=== PATIENT | female | born 2005 | race Caucasian/White ===

== ENCOUNTER 2023-01-11 11:48 | Emergency (ER) | payer BC, SELFPAY ==
[2023-01-11 11:50] VITALS: BP 119/94; PULSE 86; RESP 15; TEMP 36.2; O2SAT 99; BMI 21.9
--- NOTE | 2023-01-11 12:48 | EDS_ITS ---
HPI History of Present Illness Chief Complaint: Bite Informant: patient Narrative Narrative: Patient presents for [facility] secondary to possible bat bite. She is in an older dorm this year. She has not seen any bats recently but in the shower today she noted a few small red christianson on her right forearm. She went to the [facility] and due to concern for possible bat bite she was sent to the emergency room. [facility] Medical History ADHD Anxiety Depression Allergy/AdvReac Type Severity Reaction Status Date / Time No Known Allergies Allergy Verified 01/11/23 12:43 Social History Smoking Status: Never smoker ROS ROS ED Constitutional Constitutional ED: Denies chills or fever(s) ENT ENT ED: Denies sore throat Cardiovascular Cardiovascular: Denies chest pain Respiratory/Chest Respiratory/Chest: Denies cough or dyspnea Gastrointestinal Gastrointestinal: Denies abdominal pain, nausea or vomiting Musculoskeletal Musculoskeletal: Denies back pain or extremity pain Integumentary Reports rash; Denies Abrasions Neurologic Neurologic: Denies headache(s) or weakness Psychiatric Psychiatric: Denies anxiety or depression Allergic/Immunologic Allergic/Immunologic ED: Denies lip swelling or urticaria EXAM Physical Exam Const Vital Signs: 01/11/23 11:50 Temperature 97.1 F L Temperature Source Temporal Pulse Rate 86 Respiratory Rate 15 Blood Pressure 119/94 H Blood Pressure Mean 102 Pulse Ox 99 Oxygen Delivery Method Room Air Positive well nourished and well developed General Appearance ED: well developed HEENT Reports moist mucous membranes Eyes EOMs intact bilaterally Chest Wall inspection of chest normal and palpation of chest normal Resp normal respiratory effort and clear to auscultation bilaterally Cardio regular rate and regular rhythm Extremity Extremity Narrative: Patient has a few very faint pink christianson on the volar aspect of her right forearm. The area is not tender. There is no edema. There is no bleeding. Neuro oriented x3 and no sensory deficits noted Motor Exam: strength 5/5 throughout MDM MDM MDM Narrative Medical decision making narrative: I advised the patient that there is no way to guarantee that this is not marked from a bat bite, although my suspicion is very low. After discussion of pros and cons she does wish to proceed with rabies vaccination. Immunoglobulin as well as initial dose of vaccine will be given at this time. Discharge Plan Triage Chief Complaint: Bite ED Provider: Fariba Hobbs Dx/Rx/DC Orders Clinical Impression: Bat bite wound Instructions: Understanding Rabies Primary Care Provider: Care Physician,No Primary Referrals: [facility] [Group of Physicians] - As Needed Care Physician,No Primary [Primary Care Provider] - Activity Restrictions/Additional Instructions: As discussed, you will need to return to the emergency room on day 3, day 7, and day 14 for further injections. Disposition Disposition: Home, Self Care
[2023-01-11] MEDS: Rabies Vaccine,Human Diploid 2.5 UNITS Vial IM (13:00)
[2023-01-11] MEDS: Rabies Immune Globulin 150 U/ML 2ml Vial 1090 U IM (13:01)
[2023-01-11 14:30] VITALS: BP 103/79; PULSE 104
== END 2023-01-11 14:31 | disposition home or self-care (01) ==
PROVIDERS: Emergency Provider Emergency Medicine; Visit Provider Emergency Medicine
DX: S51.801A Unspecified open wound of right forearm, initial encounter (principal); W55.81XA Bitten by other mammals, initial encounter
CPT/HCPCS: 90675; 96372; 99283; 90375

== ENCOUNTER 2023-01-14 13:04 | Emergency (ER) | payer BC, SELFPAY ==
[2023-01-14 13:16] VITALS: BP 111/76; PULSE 102; O2SAT 99
[2023-01-14] MEDS: Rabies Vaccine,Human Diploid 2.5 UNITS Vial IM (13:32)
== END 2023-01-14 13:41 | disposition home or self-care (01) ==
PROVIDERS: Emergency Provider Emergency Medicine
DX: Z23 Encounter for immunization (principal)
CPT/HCPCS: 90675; 96372

== ENCOUNTER 2023-01-18 16:00 | Outpatient (CLI) | payer BC, SELFPAY ==
[2023-01-18 16:15] VITALS: BP 129/82; PULSE 99; RESP 17; TEMP 36.4; O2SAT 98; BMI 24.6
[2023-01-18] MEDS: Rabies Vaccine,Human Diploid 2.5 UNITS Vial IM (17:16)
== END 2023-01-18 18:09 | disposition home or self-care (01) ==
LOC: ED 18:08
DX: Z23 Encounter for immunization (principal)
CPT/HCPCS: 90675; 96372

== ENCOUNTER → 2023-01-25 | Outpatient (CLI) | payer BC, SELFPAY ==
[2023-01-25 18:39] VITALS: BP 123/96; PULSE 98; RESP 18; TEMP 36.3; O2SAT 98; BMI 24.3
[2023-01-25 18:40] VITALS: BP 123/96; PULSE 105; RESP 16; TEMP 36.3; O2SAT 98; BMI 24.3
[2023-01-25] MEDS: Rabies Vaccine,Human Diploid 2.5 UNITS Vial IM (18:54)
== END | disposition home or self-care (01) ==
LOC: ED 19:25
DX: Z23 Encounter for immunization (principal)
CPT/HCPCS: 90675; 96372

== ENCOUNTER 2023-04-01 16:55 | Emergency (ER) | payer BC, SELFPAY ==
[2023-04-01 16:56] VITALS: BP 112/77; PULSE 83; RESP 16; TEMP 36.9; O2SAT 99; BMI 22.6
--- NOTE | 2023-04-01 17:16 | EDS_ITS ---
HPI History of Present Illness Chief Complaint: General Illness Informant: patient Narrative Narrative: For about the past week, patient has been having what she calls tics. They have been very frequent. She has had these as a child, but fairly infrequently, sim fabianar to this. She has lipsmacking at times, she has turned over the arm of a chair while she was sitting suddenly, most of them or not that dramatic though. Most of them have been simply shrugging of her shoulders, turning her head to the side, and sometimes making noises or movements with her mouth and lips. At times they have involved her legs, but nothing that has kept her from maintaining posterior or given her trouble walking. No loss consciousness. Nothing rhythmic. Patient is on medications for anxiety, depression, ADHD. She states her medications been stable but she ran out of her Adderall 1 week ago, she agrees that the timing of this coincides with the timing of her tics being worse. She has never seen a neurologist or actually seen a doctor for the tics, she states her parents are aware that she does them at times, but she has never had it as frequently as she does right now. She states she emailed her doctor in [place] where she is from, she attends college here, and just has not gotten a refill yet. Denies any recent illness. Denies head injury. Denies any focal neurologic symptoms such as vision changes, numbness, tingling, weakness, trouble speaking or understanding others. [facility] Medical History (Updated 04/01/23 @ 17:[address] Jack Garcia MD) ADHD Anxiety Depression Home Medications dextroamphetamine-amphetamine 10 mg tablet (Adderall) 10 mg PO DAILY 14 days #14 tabs 04/01/23 [Rx Last Taken Unknown] mirtazapine 7.5 mg tablet 7.5 mg PO QHS 04/01/23 [History Last Taken Unknown] Allergy/AdvReac Type Severity Reaction Status Date / Time No Known Allergies Allergy Verified 04/01/23 16:56 Social History Smoking Status: Never smoker ROS ROS ED Constitutional Constitutional ED: Denies chills or fever(s) Eyes Eyes: Denies change in vision or diplopia ENT ENT ED: Denies rhinorrhea or sore throat Cardiovascular Cardiovascular: Denies chest pain or palpitations Respiratory/Chest Respiratory/Chest: Denies cough or dyspnea Gastrointestinal Gastrointestinal: Denies abdominal pain, diarrhea, nausea or vomiting Genitourinary Genitourinary ED: Denies dysuria or hematuria Musculoskeletal Musculoskeletal: Denies back pain or neck pain Integumentary Denies abscess or rash Neurologic Neurologic: Reports as per HPI; Denies headache(s), paresthesias or weakness Psychiatric Psychiatric: Denies anxiety or suicidal thoughts EXAM Physical Exam Const Vital Signs: 04/01/23 16:56 Temperature 98.4 F Temperature Source Temporal Pulse Rate 83 Respiratory Rate 16 Blood Pressure 112/77 Blood Pressure Mean 88 Pulse Ox 99 Oxygen Delivery Method Room Air Positive well nourished and well developed General Appearance ED: well developed and NAD HEENT Reports moist mucous membranes normocephalic and atraumatic Eyes PERRL and EOMs intact bilaterally Neck full ROM and supple Resp normal respiratory effort and clear to auscultation bilaterally Cardio regular rate, regular rhythm and no murmurs GI non-tender and non-distended Auscultation: normoactive bowel sounds Palpation: soft Back/Spine no CVA tenderness General Back: other FROM Extremity normal to inspection General Extremety ED: Negative for edema, pulses abnormal or tenderness General Extremity: Negative for edema or pulses abnormal Neuro oriented x3, CN's II-XII intact bilaterally and no sensory deficits noted Neuro Narrative: Frequent tics. No seizure activity. There are times when the patient is asymptomatic. These include lipsmacking, making noises with her mouth, shoulder and neck movements, rarely a leg or an arm. Able to stand without any d ifficulty as well as walk. Sensorium / Orientation: awake and alert Motor Exam: strength 5/5 throughout Psych mental status grossly normal Skin no rashes or lesions noted and no wounds MDM MDM MDM Narrative Medical decision making narrative: We will check labs to rule out anemia and like disorder that could cause tetany or muscle spasms. Given the timing of her medication that ran out, my first instinct is that this is related to withdrawing from her Adderall. However, the tics are a side effect of Adderall. I think this is less likely a dystonic reaction related to her Lexapro/mirtazapine. If she had tics in the past, it is possible that she has a tic disorder. At this time I am going to give her a short refill prescription of the Adderall 10 mg that she takes, with instructions that if the tics become worse on the medication that she should stop it and return to the ER or follow-up with neurology or her doctor in [place] virtually if able. Labs reviewed all normal, plan as above. At discharge, offered the patient a dose of oral Ativan which she was amenable to and asked me to discuss with her mom as well which we all did together on cell phone. Mom is comfortable with this overall plan, she understands this is mostly clinical diagnosis and tough to manage acutely, the Ativan may help tonight, in her case I think it is probably withdrawal from the Adderall which she has been on for years without major issues but the patient still confirms to mom, which was unknown prior to her telling her to this, that she has been having tics like this many times in the past which is why I think this is not a dystonic reaction. We did also consider prescriptions for clonidine and other neuroleptics, but I do not think that is necessarily appropriate right now until she goes back on her Adderall to see if it suppresses the symptoms. If it does not, and makes it worse, I recommend discontinuing it and following up or returning. Lab Data Attestation: I reviewed the patient's lab results. Labs: Laboratory Results - last 24 hr 04/01/23 17:42 WBC 7.6 RBC 4.52 Hgb 13.5 Hct 41.8 MCV 92.5 MCH 29.9 MCHC 32.3 RDW Std Deviation 43.4 RDW Coeff of Suri 12.8 Plt Count 325 MPV 9.9 Immature Gran % (Auto) 0.400 Neut % (Auto) 54.0 Lymph % (Auto) 35.2 [place] % (Auto) 7.9 Eos % (Auto) 1.7 Baso % (Auto) 0.8 Absolute Neuts (auto) 4.1 Absolute Lymphs (auto) 2.68 Nucleated RBC % 0 Sodium 141 Potassium 3.9 Chloride 109 H Carbon Dioxide 26.0 Anion Gap 6 BUN 9 Creatinine 0.73 Estim Creat Clear Calc 98.04 Est GFR (MDRD) Af Amer 132 Est GFR (MDRD) Non-Af 109 BUN/Creatinine Ratio 12.4 Glucose 101 Calcium 9.1 Discharge Plan Triage Chief Complaint: General Illness ED Provider: Jack Garcia Dx/Rx/DC Orders Clinical Impression: Medication refill, Tic douloureux Instructions: Adderall Oral Tablet 10 mg, Tourette Syndrome Ch Prescriptions: New dextroamphetamine-amphetamine [Adderall] 10 mg tablet 10 mg PO DAILY 14 Days Qty: 14 0RF No Action mirtazapine 7.5 mg tablet 7.5 mg PO QHS Primary Care Provider: Care Physician,No Primary Referrals: Paco Arango MD [Non-Staff -Ordering Privileges] - Care Physician,No Primary [Primary Care Provider] - Disposition Disposition: Home, Self Care
[2023-04-01 17:51] LABS: Absolute Lymphocyte Count 2.68 X10^3/uL (0.83-4.51); Absolute Neutrophil Count 4.1 X10^3/uL (2.0-7.7); Basophil# 0.06 X10^3/uL; Basophil% 0.8 % (0-1); Eosinophil# 0.13 X10^3/uL; Eosinophils% 1.7 % (0-5); Hematocrit 41.8 % (37-47); Hemoglobin 13.5 g/dL (12.0-15.0); Lymphocyte # 2.68 X10^3/ul (0.83-4.51); Lymphocyte % 35.2 % (19-41); Mean Corp Hgb Conc 32.3 g/dL (32-36); Mean Corpuscular Hgb 29.9 pg (27.0-32.0); Mean Corpuscular Volume 92.5 fL (81-99); Mean Platelet Vol. 9.9 fl (6.2-12.0); Monocyte% 7.9 % (0-10); NRBC Flagged by Analyzer 0 % (0-5); Neutrophil # 4.11 X10^3/uL (2.7-7.7); Platelet Count 325 K/mm3 (150-450); RBC Distribution Width CV 12.8 % (11.6-14.6); RBC Distribution Width SD 43.4 fl (35.1-43.9); Red Blood Count 4.52 M/mm3 (4.2-5.4); White Blood Count 7.6 K/mm3 (4.4-11.0)
[2023-04-01 18:08] LABS: Anion Gap 6 (5-15); BUN 9 mg/dL (7-18); BUN/Creat Ratio 12.4 RATIO (10-20); Calcium,Total 9.1 mg/dL (8.5-10.1); Chloride 109 mmol/L (98-107); Creatinine, Serum 0.73 mg/dL (0.55-1.02); EST Glomerular Filtration Rate 109 mL/min (>60); Est Glom Filt Rate - Afr Amer 132 mL/min (>60); Estimated Creatinine Clearance 98.04 ml/min; Glucose 101 mg/dL (74-106); Potassium 3.9 mmol/L (3.5-5.1); Sodium Level 141 mmol/L (136-145)
[2023-04-01] MEDS: LORazepam 1 MG Tablet PO (18:52)
== END 2023-04-01 18:54 | disposition home or self-care (01) ==
PROVIDERS: Emergency Provider Emergency Medicine; Visit Provider Emergency Medicine
DX: G50.0 Trigeminal neuralgia (principal); Z76.0 Encounter for issue of repeat prescription; F41.9 Anxiety disorder, unspecified; F90.9 Attention-deficit hyperactivity disorder, unspecified type; F32.A Depression, unspecified; Z79.899 Other long term (current) drug therapy
CPT/HCPCS: 80048; 85025; 99283

== ENCOUNTER 2023-04-15 20:05 | Emergency (ER) | payer BC, SELFPAY ==
[2023-04-15 20:07] VITALS: BP 118/90; PULSE 110; RESP 18; TEMP 36.8; O2SAT 98; BMI 23.5
--- NOTE | 2023-04-15 20:23 | CT_ITS ---
INDICATION: head injury EXAMINATION: CT BRAIN - CT Head or Brain W/O Contrast Injection TECHNIQUE: Serial CT axial images were obtained of the head without intravenous contrast. A radiation dose optimization technique was used for this scan. COMPARISON: None. Findings: Serial CT axial images of the head without contrast. BRAIN PARENCHYMA: Normal alegria-white matter differentiation. No evidence of intraparenchymal hemorrhage or hyperattenuating extra-axial fluid collection. BONES: Right maxillary sinus retention cyst. SCALP/REMAINING SOFT TISSUES: Unremarkable. ASPECTS Score for Acute Strokes, if applicable: 10 CT/Brain/Head without Contrast IMPRESSION: No acute intracranial hemorrhage in this noncontrast head CT. Sinus disease. Electronically Signed: Chris Hoang MD at 21:22 EST ,
--- NOTE | 2023-04-15 20:25 | EX.ED.DYSGE1 ---
HPI <KARIN Melara - Last Filed: 04/15/23 20:59> History of Present Illness Chief Complaint: Head Injury Narrative Narrative: Patient is a 17-year-old female with history of anxiety, depression, ADHD presents to the emergency department for worsening tics. Patient states that she was seen here on 04/01/2023 for the same. Patient states that these tics which she used to have as a child however never this dramatic started again on 03/29/2023. Patient at that time thought it was secondary to not taking her Adderall. Patient states over the last several weeks, the tics have been getting worse, they are mostly in her upper and lower body, she also states that sometimes when she is on the floor her legs will get involved as well. She is here with her significant other. Patient also states that last evening she became very dizzy and had a vertiginous-like episode and had some vision changes. She denies any nausea or vomiting. Patient states that she does see a nurse practitioner that is also specialized in psych who she follows up with however she was unable to get a hold of her this weekend. Secondary to the worsening tics, the patient is here for evaluation. PFSH <KARIN Melara - Last Filed: 04/15/23 20:59> [facility] Medical History (Updated 04/15/23 @ 22:00 by Farooq Kruse MD) ADHD Anxiety Depression OCD (obsessive compulsive disorder) Home Medications dextroamphetamine-amphetamine 10 mg tablet (Adderall) 10 mg PO DAILY 14 days #14 tabs 04/01/23 [Rx Last Taken Unknown] mirtazapine 7.5 mg tablet 7.5 mg PO QHS 04/01/23 [History Last Taken Unknown] hydroxyzine pamoate 25 mg capsule (Vistaril) 25 mg PO BID PRN anxiety #14 caps 04/15/23 [Rx Last Taken Unknown] Allergy/AdvReac Type Severity Reaction Status Date / Time No Known Allergies Allergy Verified 04/15/23 20:10 Social History Smoking Status: Never smoker ROS <KARIN Melara - Last Filed: 04/15/23 20:59> ROS ED ROS Narrative Constitutional: Negative for fever, chills, weight loss, weakness Eyes: Negative for vision loss, double vision. Positive for vision change ENT: Negative for any sore throat, ear pain, congestion Cardiovascular: Negative for any chest pain, tightness, palpitations Respiratory: Negative for any cough, sputum production, hemoptysis, dyspnea, dyspnea on exertion, orthopnea Gastrointestinal: Negative for any abdominal pain, nausea, vomiting, diarrhea, constipation, blood in stool, blood in vomit : Negative for any urinary frequency, dysuria, retention, blood in urine Muscle skeletal: Negative for any myalgias, arthralgias, neck pain, back pain Neurological: Negative for any headache, syncope, numbness or tingling, dizziness. Positive for tics, movements of the face and upper extremities. Skin: Negative for any rashes, lumps, itching, abrasions, lacerations Psychiatric: Negative for any depression, anxiety, stress, suicidal ideation, homicidal ideation Hematologic: Negative for any easy bruising, excessive bruising, easy bleeding Allergies: Negative for any eczema, hives, rash EXAM <KARIN Melara - Last Filed: 04/15/23 20:59> Physical Exam Narrative Exam Narrative: Vital signs reviewed. Patient had multiple taking episodes while I was in the room talking with the patient. They range from anywhere of movements with her jaw to her face to her neck to moving her shoulders. HEET: Head normocephalic atraumatic, TMs clear bilaterally. Posterior pharynx is clear, moist mucous membranes. Nares clear bilaterally. Pupils are equal round reactive to light. Negative for any nystagmus. Neck: Supple with no lymphadenopathy or tenderness. No signs of meningismus. Cardiac: Regular rate and rhythm no murmurs gallops or rubs, equal peripheral pulses bilaterally. Respiratory: Lungs clear to auscultation bilaterally. No chest tenderness. Abdomen: Soft, nontender, nondistended. No abdominal bruit or pulsatile masses. No hepatosplenomegaly Extremities: No peripheral edema, no signs of gross trauma or deformity. Active full range of motion of all extremities. Neuro: Cranial nerves II through XII intact, no focal neurological deficits. Patient does have these tics however they are constant, Skin: Clean dry and intact with no rash, purpura, petechiae, vesicles or pustules. Backs/flank: No CVA tenderness, no midline spinal tenderness, no deformity. Psych: Normal mood and affect. No SI, HI or acute psychosis. Const Vital Signs: 04/15/23 20:07 04/15/23 21:30 Temperature 98.3 F Temperature Source Temporal Pulse Rate 110 H Respiratory Rate 18 Respiratory Effort Normal Non-Labored Respiratory Depth Normal Respiratory Pattern Normal Blood Pressure 118/90 H Blood Pressure Mean 99 Pulse Ox 98 Oxygen Delivery Method Room Air Room Air Positive well nourished and well developed General Appearance ED: well developed <Farooq Kruse MD - Last Filed: 04/15/23 22:03> Physical Exam Const Vital Signs: 04/15/23 20:07 04/15/23 21:30 Temperature 98.3 F Temperature Source Temporal Pulse Rate 110 H Respiratory Rate 18 Respiratory Effort Normal Non-Labored Respiratory Depth Normal Respiratory Pattern Normal Blood Pressure 118/90 H Blood Pressure Mean 99 Pulse Ox 98 Oxygen Delivery Method Room Air Room Air MDM <KARIN Melara - Last Filed: 04/15/23 20:59> MDM Lab Data Labs: Laboratory Results - last 24 hr 04/15/23 04/15/23 20:35 21:07 WBC 8.8 RBC 4.31 Hgb 13.1 Hct 39.2 MCV 91.0 MCH 30.4 MCHC 33.4 RDW Std Deviation 41.2 RDW Coeff of Suri 12.4 Plt Count 285 MPV 9.9 Immature Gran % (Auto) 0.300 Neut % (Auto) 61.2 Lymph % (Auto) 28.1 [place] % (Auto) 9.2 Eos % (Auto) 0.5 Baso % (Auto) 0.7 Absolute Neuts (auto) 5.4 Absolute Lymphs (auto) 2.48 Nucleated RBC % 0 Sodium 139 Potassium 3.6 Chloride 108 H Carbon Dioxide 24.0 Anion Gap 7 BUN 10 Creatinine 0.79 Estim Creat Clear Calc 90.59 Est GFR (MDRD) Af Amer 119 Est GFR (MDRD) Non-Af 99 BUN/Creatinine Ratio 12.6 Glucose 91 Calcium 9.3 TSH 1.28 Urine Color Yellow Urine Clarity Cloudy Urine pH 5.0 Ur Specific [place] 1.025 Urine Protein 30 H Urine Glucose (UA) Normal Urine Ketones 50 H Urine Occult Blood 25 H Urine Nitrite Negative Urine Bilirubin Negative Urine Urobilinogen Normal Ur Leukocyte Esterase 500 H Urine RBC 0-5 SEEN Urine WBC 50-100 SEEN Ur Squamous Epith Cells 25-50 SEEN Urine Bacteria 2+ Urine Mucus 0 SEEN Urine Test Negative Radiography Diagnostic Testing: Clinical Impression(s) from Imaging Studies Brain CT 04/15/23 20:23 IMPRESSION: No acute intracranial hemorrhage in this noncontrast head CT. Sinus disease. Electronically Signed: Chris Hoang MD at 21:22 EST , Treatment and Re-Evaluation :: Patient appears to be in no obvious distress, patient's vital signs are stable, patient appears nontoxic. Presenting to the emergency department for tics that have been getting worse since 29 March 2023. The patient is concerned she might have hypothyroidism, she would like that checked. Patient's differential diagnosis includes mental illness, electrolyte imbalance, intracranial normality, anemia, attention seeking behavior. Patient does produce more tics when her boyfriend is around her. Patient received some basic laboratory values, electrolytes, TSH. She will receive a CT scan of the brain concerning for dizziness. Patient was given meclizine for dizziness. <Farooq Kruse MD - Last Filed: 04/15/23 22:03> [facility] Narrative Medical decision making narrative: Dr. Kruse: I have personally performed a face to face assessment of the patient and have reviewed the MARK Note. I performed a substantive portion of the visit including all aspects of the following. My ramirez findings include: History is muscle twitching, possibly stress-induced. It self and head with twitching. Exam is afebrile. Vital signs noted. GCS 15. ABCs intact. Regular rate and rhythm. Lungs clear to auscultation bilaterally. Abdomen soft and nontender. Involuntary body jerking and muscle twitching during examination. Medical Decision Making: Patient seen in conjunction with nurse practitioner. Check CT of brain. CT radiology report reviewed and shows no evidence of acute intracranial hemorrhage or mass. I reviewed her laboratory work and she has normal TSH, her CBC and CMP are also normal. Urine is negative, urinalysis is a contaminated specimen I do not feel antibiotics are indicated. Discussed with patient and mother over the phone, her results. I do feel that she needs follow-up with her psychiatrist. She was also referred to neurology and a primary care provider. I do not feel she requires admission. She will take Vistaril up to twice a day as needed as she relays problems with stress and anxiety which is causing increasing muscle twitching. Disposition is discharged in stable condition. Other additions or changes: [None] History & Record Review Discussion w/independent historian: Patient and Family (Mother via telephone.) Lab Data Attestation: I reviewed the patient's lab results. Labs: Laboratory Results - last 24 hr 04/15/23 04/15/23 20:35 21:07 WBC 8.8 RBC 4.31 Hgb 13.1 Hct 39.2 MCV 91.0 MCH 30.4 MCHC 33.4 RDW Std Deviation 41.2 RDW Coeff of Suri 12.4 Plt Count 285 MPV 9.9 Immature Gran % (Auto) 0.300 Neut % (Auto) 61.2 Lymph % (Auto) 28.1 [place] % (Auto) 9.2 Eos % (Auto) 0.5 Baso % (Auto) 0.7 Absolute Neuts (auto) 5.4 Absolute Lymphs (auto) 2.48 Nucleated RBC % 0 Sodium 139 Potassium 3.6 Chloride 108 H Carbon Dioxide 24.0 Anion Gap 7 BUN 10 Creatinine 0.79 Estim Creat Clear Calc 90.59 Est GFR (MDRD) Af Amer 119 Est GFR (MDRD) Non-Af 99 BUN/Creatinine Ratio 12.6 Glucose 91 Calcium 9.3 TSH 1.28 Urine Color Yellow Urine Clarity Cloudy Urine pH 5.0 Ur Specific [place] 1.025 Urine Protein 30 H Urine Glucose (UA) Normal Urine Ketones 50 H Urine Occult Blood 25 H Urine Nitrite Negative Urine Bilirubin Negative Urine Urobilinogen Normal Ur Leukocyte Esterase 500 H Urine RBC 0-5 SEEN Urine WBC 50-100 SEEN Ur Squamous Epith Cells 25-50 SEEN Urine Bacteria 2+ Urine Mucus 0 SEEN Urine Test Negative Radiography Diagnostic Testing: Clinical Impression(s) from Imaging Studies Brain CT 04/15/23 20:23 IMPRESSION: No acute intracranial hemorrhage in this noncontrast head CT. Sinus disease. Electronically Signed: Chris Hoang MD at 21:22 EST , Discharge Plan Triage Chief Complaint: Head Injury ED Midlevel Provider: Navin Rich ED Provider: Farooq Kruse Dx/Rx/DC Orders Clinical Impression: Stress, Twitching, Anxiety Instructions: Identifying Causes of Stress, ED Muscle Spasm Prescriptions: New hydroxyzine pamoate [Vistaril] 25 mg capsule 25 mg PO BID PRN (Reason: anxiety) Qty: 14 0RF No Action mirtazapine 7.5 mg tablet 7.5 mg PO QHS dextroamphetamine-amphetamine [Adderall] 10 mg tablet 10 mg PO DAILY 14 Days Qty: 14 0RF Primary Care Provider: Care Physician,No Primary Referrals: Rachelle Mena MD [Med Staff - Full Decator Operator] - As soon as possible Paco Arango MD [Non-Staff -Ordering Privileges] - As soon as possible Care Physician,No Primary [Primary Care Provider] - Activity Restrictions/Additional Instructions: Follow-up with your psychiatrist as soon as possible. You may need to follow-up with a primary care provider and/or neurology as well. Disposition Disposition: Home, Self Care
[2023-04-15 20:48] LABS: Absolute Lymphocyte Count 2.48 X10^3/uL (0.83-4.51); Absolute Neutrophil Count 5.4 X10^3/uL (2.0-7.7); Basophil# 0.06 X10^3/uL; Basophil% 0.7 % (0-1); Eosinophil# 0.04 X10^3/uL; Eosinophils% 0.5 % (0-5); Hematocrit 39.2 % (37-47); Hemoglobin 13.1 g/dL (12.0-15.0); Lymphocyte # 2.48 X10^3/ul (0.83-4.51); Lymphocyte % 28.1 % (19-41); Mean Corp Hgb Conc 33.4 g/dL (32-36); Mean Corpuscular Hgb 30.4 pg (27.0-32.0); Mean Platelet Vol. 9.9 fl (6.2-12.0); Monocyte# 0.81 X10^3/uL; Monocyte% 9.2 % (0-10); NRBC Flagged by Analyzer 0 % (0-5); Neutrophil % 61.2 % (47-70); Platelet Count 285 K/mm3 (150-450); RBC Distribution Width CV 12.4 % (11.6-14.6); RBC Distribution Width SD 41.2 fl (35.1-43.9); Red Blood Count 4.31 M/mm3 (4.2-5.4); White Blood Count 8.8 K/mm3 (4.4-11.0)
[2023-04-15] MEDS: Meclizine HCl 25 MG Tablet PO (21:00)
[2023-04-15 21:13] LABS: Anion Gap 7 (5-15); BUN 10 mg/dL (7-18); BUN/Creat Ratio 12.6 RATIO (10-20); Calcium,Total 9.3 mg/dL (8.5-10.1); Chloride 108 mmol/L (98-107); Creatinine, Serum 0.79 mg/dL (0.55-1.02); EST Glomerular Filtration Rate 99 mL/min (>60); Est Glom Filt Rate - Afr Amer 119 mL/min (>60); Estimated Creatinine Clearance 90.59 ml/min; Glucose 91 mg/dL (74-106); Potassium 3.6 mmol/L (3.5-5.1); Sodium Level 139 mmol/L (136-145); Thyroid Stim Hormone (TSH) 1.28 uIU/mL (0.358-3.74)
[2023-04-15 21:14] LABS: Mucous, Urine 0 SEEN /hpf (<or=2+)
[2023-04-15 21:18] LABS: Color, Urine Yellow (Yellow); Glucose, Dipstick Normal (Normal); Ketone-Dipstick 50 mg/dl (Negative); Leukocyte Esterase-Dipstick 500 /ul (Negative); Nitrite-Dipstick Negative (Negative); Occult Blood-Urine 25 /ul (Negative); Protein-Dipstick 30 mg/dl (Negative); Specific Gravity, Urine 1.025 (1.002-1.030); Urine Bilirubin Dipstick Negative (Negative); Urine Clarity Cloudy (Clear); Urine Urobilinogen Normal (Normal)
[2023-04-15 21:26] LABS: Red Blood Cells-Urine 0-5 SEEN /hpf (0-5); Squamous Epithelial Cells - UA 25-50 SEEN /hpf (5-10); White Blood Cells 50-100 SEEN /hpf (0-5)
[2023-04-15 21:27] LABS: Bacteria 2+ /hpf (None Seen)
[2023-04-15 21:32] LABS: Internal QC Validated? YES +Cl - CLEAR BKGD; Pregnancy, Urine Negative Negative
[2023-04-15 22:06] VITALS: BP 105/77; PULSE 96; RESP 15; O2SAT 97
[2023-04-15 22:16] VITALS: BP 105/77; PULSE 96; RESP 15; O2SAT 96
== END 2023-04-15 22:18 | disposition home or self-care (01) ==
PROVIDERS: Nurse Practitioner; Emergency Provider Emergency Medicine; Visit Provider Emergency Medicine
DX: R25.3 Fasciculation (principal); F41.9 Anxiety disorder, unspecified; F32.A Depression, unspecified; Z79.899 Other long term (current) drug therapy; F43.9 Reaction to severe stress, unspecified
CPT/HCPCS: 70450; 80048; 81001; 81025; 84443; 85025; 99282; A4216